=== PATIENT | male | born 1965 | race Caucasian/White ===

== ENCOUNTER 2019-06-12 19:32 | Emergency (ER) | payer OTHER ==
[~2019-06-12] VITALS: Ht 188 cm; Wt 102.0 kg
[~2019-06-12 19:32] MED LIST: ARGI1000 PO; ASCO-96 PO; BIOT5CAP3 PO; CELE200C PO; CHOL200052 PO; CIPR500T87 PO; DOCU100T3 PO; GINK60TA PO; HYDR1TAB13 PO; MILK200C2 PO; OMEG-120 PO; OXYC5CAP2 PO; PSYL0.5215 PO; SAW/1TAB2 PO; SIMV20TA19 PO; TAMS0.4C2 PO
--- NOTE | 2019-06-12 21:24 | NUR ---
TEACHING DONE ON KNEE IMMOBILIZER AND CRUTCHES. IV REMOVED WITH CATH INTACT, AND DISCHARGE INSTRUCTIONS DONE BY CIRA ORTA. PT AMBULATED OUT OF ED WITH GIRLFRIEND. PT MANEUVERING THE CRUTCHES WELL.
[2019-06-12 21:30] VITALS: BP 135/78
== END 2019-06-12 21:38 | disposition home or self-care (01) ==
LOC: ED 21:25
DX: S82.092A Other fracture of left patella, initial encounter for closed fracture (principal); S76.112A Strain of left quadriceps muscle, fascia and tendon, initial encounter; E78.00 Pure hypercholesterolemia, unspecified; I10 Essential (primary) hypertension; W10.8XXA Fall (on) (from) other stairs and steps, initial encounter; Y93.89 Activity, other specified; Y92.89 Other specified places as the place of occurrence of the external cause; Y99.8 Other external cause status
CPT/HCPCS: 99283

== ENCOUNTER 2019-06-16 08:34 | Day surgery (SDC) | payer OTHER ==
[~2019-06-16] VITALS: Ht 188 cm; Wt 110.5 kg
[2019-06-16] MEDS ORDERED: LACTATED RINGERS 1,000 ML IV SCH (09:08)
[2019-06-16 09:11] VITALS: BP 146/94
[2019-06-16] MEDS ORDERED: TAMS-11 PO (09:18)
[2019-06-16 09:42] LABS: ALANINE AMINOTRANSFERASE 51 U/L (12-78); ANION GAP 8 mmol/L (5-15); CHLORIDE 111 mmol/L (98-107); CREATININE 1.24 mg/dL (0.7-1.3)
[2019-06-16 09:44] LABS: ALKALINE PHOSPHATASE 54 U/L (45-117); BILIRUBIN,TOTAL 1.4 mg/dL (0.2-1.0); TOTAL PROTEIN 7.8 g/dL (6.4-8.2)
[2019-06-16] MEDS ORDERED: MIDAZOLAM 1 MG/ML, 2ML ONE (09:53)
[2019-06-16] MEDS ORDERED: FENTANYL PF 100 MCG/2ML ONE (09:54)
[2019-06-16] MEDS ORDERED: BUPIVACAINE/PF-EPI 0.5% 1:200K ONE (10:28)
[2019-06-16] MEDS ORDERED: KETOROLAC 30 MG/1 ML ONE (10:36)
[2019-06-16] MEDS ORDERED: LABETALOL 5MG/ML, 20ML IV PRN (11:00)
[2019-06-16] MEDS ORDERED: KETOROLAC 30 MG/1 ML IV PRN (11:00)
[2019-06-16] MEDS ORDERED: PROMETHAZINE 25 MG/ML, 1ML IV PRN (11:00)
[2019-06-16] MEDS ORDERED: hydrALAzine 20 MG/ML, 1ML IV PRN (11:00)
[2019-06-16] MEDS ORDERED: ALBUTEROL SULFATE 2.5 MG/3 ML NPPB PRN (11:00)
[2019-06-16] MEDS ORDERED: DIAZEPAM 5 MG/ML, 2ML IVPush PRN (11:00)
[2019-06-16] MEDS ORDERED: OXYcodone 5 MG/5 ML ORAL.SOL UDC PO PRN (11:00)
[2019-06-16] MEDS ORDERED: HYDROmorphone 2 MG/ML, 1ML IVPush PRN (11:00)
[2019-06-16] MEDS ORDERED: MEPERIDINE/PF 25MG/0.5ML IVPush PRN (11:00)
[2019-06-16] MEDS ORDERED: ACETAMINOPHEN 325 MG TABLET PO PRN (11:00)
[2019-06-16] MEDS ORDERED: FENTANYL PF 100 MCG/2ML IV PRN (11:00)
[2019-06-16] MEDS ORDERED: ONDANSETRON 2MG/ML, 2ML ONE (11:02)
[2019-06-16] MEDS ORDERED: PROPOFOL 10 MG/ML, 20ML ONE ×2 (11:02)
[2019-06-16] MEDS ORDERED: DEXAMETHASONE 4 MG/ML, 1ML ONE (11:02)
[2019-06-16] MEDS ORDERED: CEFAZOLIN 1,000 MG ONE (11:02)
[2019-06-16] MEDS ORDERED: BUPIVACAINE/PF-EPI 0.5% 1:200K INFIL ONE (11:07)
[2019-06-16] MEDS ORDERED: FENTANYL PF 250 MCG/5ML ONE (11:23)
[2019-06-16] MEDS ORDERED: OXYcodone 5 MG/5 ML ORAL.SOL UDC ONE (12:00)
== END 2019-06-16 14:55 | disposition home or self-care (01) ==
LOC: OUT 08:34
PROVIDERS: ATTEND Orthopaedic Surgery
DX: S76.112A Strain of left quadriceps muscle, fascia and tendon, initial encounter (principal); Z79.899 Other long term (current) drug therapy; Z96.651 Presence of right artificial knee joint; W01.0XXA Fall on same level from slipping, tripping and stumbling without subsequent striking against object, initial encounter; Y93.01 Activity, walking, marching and hiking; Y92.89 Other specified places as the place of occurrence of the external cause; Y99.8 Other external cause status
CPT/HCPCS: 27385; 36415; 64447; 80053; J0690; J1100; J1885; J2250; J2405; J2704; J3010; J7120

== ENCOUNTER 2020-06-10 09:21 | Outpatient (CLI) | payer OTHER ==
[~2020-06-10 09:21] MED LIST changes: +TAMS-11 PO
[2020-06-10] MEDS ORDERED: SIMV40TA20 PO (09:41)
[2020-06-10] MEDS ORDERED: hydrochlorothiazide PO (09:41)
[2020-06-10 10:17] LABS: ALANINE AMINOTRANSFERASE 50 U/L (12-78); ALBUMIN 4.1 g/dL (3.4-5.0); ANION GAP 7 mmol/L (5-15); CALCIUM 8.9 mg/dL (8.5-10.1); CHLORIDE 107 mmol/L (98-107); CREATININE 1.19 mg/dL (0.7-1.3)
[2020-06-10 10:20] LABS: ALKALINE PHOSPHATASE 51 U/L (45-117); BILIRUBIN,TOTAL 1.1 mg/dL (0.2-1.0); TOTAL PROTEIN 7.3 g/dL (6.4-8.2)
== END 2020-06-10 23:59 | disposition home or self-care (01) ==
LOC: CLISVCS 09:21
PROVIDERS: ATTEND Surgery
DX: Z01.812 Encounter for preprocedural laboratory examination (principal); Z20.822 Contact with and (suspected) exposure to COVID-19; K40.90 Unilateral inguinal hernia, without obstruction or gangrene, not specified as recurrent
CPT/HCPCS: 36415; 80053; U0003

== ENCOUNTER 2020-06-16 06:06 | Day surgery (SDC) | payer OTHER ==
[~2020-06-16] VITALS: Ht 188 cm; Wt 107.9 kg
[~2020-06-16 06:06] MED LIST changes: +SIMV40TA20 PO; +hydrochlorothiazide PO
[2020-06-16] MEDS ORDERED: BUPIVACAINE/PF 0.5% ONE (06:48)
[2020-06-16] MEDS ORDERED: EPINEPHRINE 1 MG/ML, 1ML ONE (06:48)
[2020-06-16 06:58] VITALS: BP 140/89
[2020-06-16] MEDS ORDERED: LACTATED RINGERS 1,000 ML IV SCH (07:00)
[2020-06-16] MEDS ORDERED: CHLORHEXIDINE 15 ML UDC PO ONE (07:00)
[2020-06-16] MEDS ORDERED: FENTANYL PF 250 MCG/5ML ONE (07:34)
[2020-06-16] MEDS ORDERED: MIDAZOLAM 1 MG/ML, 2ML ONE (07:34)
[2020-06-16] MEDS ORDERED: EPHEDRINE 50 MG/ML, 1ML ONE (07:40)
[2020-06-16] MEDS ORDERED: CEFAZOLIN 1,000 MG ONE (07:40)
[2020-06-16] MEDS ORDERED: DEXAMETHASONE 4 MG/ML, 1ML ONE (07:40)
[2020-06-16] MEDS ORDERED: PHENYLEPHRINE 10 MG/ML ONE (07:40)
[2020-06-16] MEDS ORDERED: ONDANSETRON 2MG/ML, 2ML ONE (07:40)
[2020-06-16] MEDS ORDERED: PROPOFOL 10 MG/ML, 20ML ONE (07:40)
[2020-06-16] MEDS ORDERED: BUPIVACAINE/PF-EPI 0.5% 1:200K INFIL ONE (07:54)
[2020-06-16] MEDS ORDERED: METOPROLOL 1 MG/ML, 5ML IV PRN (08:30)
[2020-06-16] MEDS ORDERED: DIAZEPAM 5 MG/ML, 2ML IVPush PRN (08:30)
[2020-06-16] MEDS ORDERED: ACETAMINOPHEN 325 MG TABLET PO PRN (08:30)
[2020-06-16] MEDS ORDERED: MEPERIDINE/PF 25MG/0.5ML IVPush PRN (08:30)
[2020-06-16] MEDS ORDERED: HYDROmorphone 1 MG/ML, 1ML INJ IVPush PRN (08:30)
[2020-06-16] MEDS ORDERED: PROMETHAZINE 25 MG/ML, 1ML IVPush PRN (08:30)
[2020-06-16] MEDS ORDERED: ONDANSETRON 2MG/ML, 2ML IVPush PRN (08:30)
[2020-06-16] MEDS ORDERED: HALOPERIDOL 5 MG/ML IV PRN (08:30)
[2020-06-16] MEDS ORDERED: KETOROLAC 30 MG/1 ML IVPush PRN (08:30)
[2020-06-16] MEDS ORDERED: METOCLOPRAMIDE 5 MG/ML, 2ML IVPush PRN (08:30)
[2020-06-16] MEDS ORDERED: DIPHENHYDRAMINE 50 MG/ML, 1ML IVPush PRN (08:30)
[2020-06-16] MEDS ORDERED: EPHEDRINE 50 MG/ML, 1ML IVPush PRN (08:30)
[2020-06-16] MEDS ORDERED: LABETALOL 5MG/ML, 20ML IV PRN (08:30)
[2020-06-16] MEDS ORDERED: hydrALAzine 20 MG/ML, 1ML IV PRN (08:30)
[2020-06-16] MEDS ORDERED: ACETAMINOPHEN 650 MG/20.3 ML UDC ONE (09:11)
[2020-06-16] MEDS ORDERED: OXYcodone 5 MG/5 ML ORAL.SOL UDC ONE (09:12)
[2020-06-16] MEDS ORDERED: FENTANYL PF 100 MCG/2ML ONE (09:12)
[2020-06-16] MEDS ORDERED: HYDR-1067 PO (09:15)
[2020-06-16] MEDS ORDERED: ONDA4TAB7 PO (09:15)
[2020-06-16] MEDS: OXYcodone 5 MG/5 ML ORAL.SOL UDC PO PRN ×2 (09:15→11:03)
[2020-06-16] MEDS: FENTANYL PF 100 MCG/2ML IV PRN ×2 (09:18→09:27)
== END 2020-06-16 11:00 | disposition home or self-care (01) ==
LOC: OUT 06:06
PROVIDERS: ATTEND Surgery
DX: K40.90 Unilateral inguinal hernia, without obstruction or gangrene, not specified as recurrent (principal); D17.6 Benign lipomatous neoplasm of spermatic cord; I10 Essential (primary) hypertension; Z79.899 Other long term (current) drug therapy; Z96.651 Presence of right artificial knee joint; Z98.890 Other specified postprocedural states
CPT/HCPCS: 49505; C1781; J0171; J0690; J1100; J2250; J2370; J2405; J2704; J3010; J7120